=== PATIENT | male | born 1950 | race Caucasian/White ===

== ENCOUNTER 2019-09-22 09:09 | Inpatient (IN) | payer MEDICARE, OTHER ==
[2019-09-22] MEDS ORDERED: Sodium Chloride 0.9% 10 ML Syringe FLUSH PRN (09:15)
[2019-09-22] MEDS ORDERED: Diltiazem 25 MG/5 ML SDV ONE (09:15)
[2019-09-22] MEDS ORDERED: Aspirin 81 MG Tab.Chew PO ONE (09:15)
[2019-09-22] MEDS ORDERED: Sodium Chloride 0.9% 2.5 ML Syringe FLUSH PRN ×2 (09:15)
[2019-09-22] MEDS ORDERED: Diltiazem 25 MG/5 ML SDV IVPUSH ONE ×3 (09:17→09:29)
--- NOTE | 2019-09-22 09:22 | EDM.PDOC ---
ED HPI GENERAL MEDICAL PROBLEM - General Chief Complaint: Cardiovascular Problem Stated Complaint: HIGH HEARTRATE Time Seen by Provider: 09/22/19 09:15 - History of Present Illness INITIAL COMMENTS - FREE TEXT/NARRATIVE: History of present illness: [Patient presents with A. fib with RVR from the surgery center across the street he was scheduled to have cataract surgery today and they noted his vital signs were abnormal and sent him here. He has no prior history of atrial fibrillation and states he feels okay and does not have any chest pain nor does he experience any shortness of breath or chest palpitations. He denies any prior heart conditions although he does have a history of DVT and of hypertension. No leg pain or leg swelling no fever cough congestion or dyspnea. No chest pain nothing makes this better or worse.] Review of systems: As per history of present illness and below otherwise all systems reviewed and negative. Past medical history: As per history of present illness and as reviewed below otherwise noncontributory. Surgical history: As per history of present illness and as reviewed below otherwise noncontributory. Social history: No reported history of drug or alcohol abuse. Family history: As per history of present illness and as reviewed below otherwise noncontributory. Physical exam: HEENT: Atraumatic, normocephalic, pupils reactive, negative for conjunctival pallor or scleral icterus, mucous membranes moist, throat clear, neck supple, nontender, trachea midline. Lungs: Clear to auscultation, breath sounds equal bilaterally, chest nontender. Heart: S1S2, rate is rapid irregularly irregular consistent with A. fib, negative for clicks, rubs, or JVD. Abdomen: Soft, nondistended, nontender. Negative for masses or hepatosplenomegaly. Negative for costovertebral tenderness. Pelvis: Stable nontender. Genitourinary: Deferred. Rectal: Deferred. Extremities: Atraumatic, negative for cords or calf pain. Neurovascular unremarkable. Neuro: Awake, alert, oriented. Cranial nerves II through XII unremarkable. Cerebellum unremarkable. Motor and sensory unremarkable throughout. Exam nonfocal. Diagnostics: [] Therapeutics: [] Impression: A. fib with RVR [] Plan: [] Studies will be sent x-ray and EKGs will be obtained he will be medicated with Cardizem for rate control admitted to the hospital for further evaluation. Definitive disposition and diagnosis as appropriate pending reevaluation and review of above. - Related Data Allergies Allergy/AdvReac Type Severity Reaction Status Date / Time cefpodoxime [From Vantin] Allergy Anaphylactic Verified 09/22/19 09:23 Shock Home Meds: Home Meds Apixaban [Eliquis] 5 mg PO BID 09/22/19 [History] Omeprazole 40 mg PO ACBREAKFAST 09/22/19 [History] Pravastatin [Pravachol] 80 mg PO BEDTIME 09/22/19 [History] amLODIPine [Norvasc] 10 mg PO DAILY 09/22/19 [History] lisinopriL [Lisinopril] 40 mg PO QAM 09/22/19 [History] ED ROS GENERAL - Review of Systems Review Of Systems: See Below ED EXAM, GENERAL - Physical Exam Exam: See Below EKG INTERPRETATION EKG Interpretation Comments: EKG is a atrial fibrillation with a rapid ventricular response of 160 bpm read and interpreted by me Course - Vital Signs Text/Narrative:: One-view portable chest read interpreted by me shows cardiomegaly no other acute cardiopulmonary pathology is evident Was reevaluated Cardizem was required and to 10 mg boluses and a drip at 10 mg/ h to control his rate in the 90s. Patient is asymptomatic at this time and feels fine no chest pain or dyspnea. Critical Care 38 minutes for control of A. fib with RVR this included initial assessment interpretation of EKGs interpretation of rhythm strips initiation of antidysrhythmic's and rate control agents interpretation of lab studies discussion with consultants discussion with patient family does not include separately billable procedures I discussed the case with Dr. Boston at 10:45 AM he will admit the patient Last Recorded V/S: Last Vital Signs Temp 36.3 C 09/22/19 09:10 Pulse 90 09/22/19 10:26 Resp 16 09/22/19 10:26 BP 149/91 H 09/22/19 10:26 Pulse Ox 96 09/22/19 10:26 - Orders/Labs/Meds Orders: Active Orders 24 hr Category Date Time Status Cardiac Monitoring [RC] . DIRECTED Care 09/22/19 09:15 Active EKG Documentation Completion [RC] STAT Care 09/22/19 09:16 Active Pulse Oximetry [RC] ASDIRECTED Care 09/22/19 09:15 Active Diltiazem [Cardizem] 100 mg Med 09/22/19 09:30 Active Sodium Chloride 0.9% [Normal Saline] 100 ml IV NOW Sodium Chloride 0.9% [Saline Flush] Med 09/22/19 09:15 Active 10 ml FLUSH ASDIRECTED PRN Sodium Chloride 0.9% [Saline Flush] Med 09/22/19 09:15 Active 2.5 ml FLUSH ASDIRECTED PRN Sodium Chloride 0.9% [Saline Flush] Med 09/22/19 09:15 Active 2.5 ml FLUSH ASDIRECTED PRN Saline Lock Insert [OM.PC] Stat Oth 09/22/19 09:15 Ordered Medication Orders Diltiazem HCl 100 mg/ Sodium (Chloride) 100 mls @ 10 mls/hr IV NOW [facility]; Protocol Last Admin: 09/22/19 09:32 Dose: 10 mg/hr, 10 mls/hr Sodium Chloride (Saline Flush) 2.5 ml FLUSH ASDIRECTED PRN PRN Reason: Keep Vein Open Last Admin: 09/22/19 09:20 Dose: 2.5 ml Sodium Chloride (Saline Flush) 10 ml FLUSH ASDIRECTED PRN PRN Reason: Keep Vein Open Last Admin: 09/22/19 09:21 Dose: 10 ml Sodium Chloride (Saline Flush) 2.5 ml FLUSH ASDIRECTED PRN PRN Reason: Keep Vein Open Last Admin: 09/22/19 09:20 Dose: 2.5 ml Labs: Laboratory Tests 09/22/19 09/22/19 09/22/19 Range/Units 09:20 09:20 09:20 WBC 5.72 (4.0-11.0) K/uL RBC 4.53 (4.50-5.90) M/uL Hgb 14.9 (13.0-17.0) g/dL Hct 45.9 (38.0-50.0) % MCV 101.3 H (80.0-98.0) fL MCH 32.9 H (27.0-32.0) pg MCHC 32.5 (31.0-37.0) g/dL RDW Std Deviation 51.1 (28.0-62.0) fl RDW Coeff of Veronica 14 (11.0-15.0) % Plt Count 217 (150-400) K/uL MPV 11.00 (7.40-12.00) fL Neut % (Auto) 63.8 (48.0-80.0) % Lymph % (Auto) 21.2 (16.0-40.0) % [place] % (Auto) 11.9 (0.0-15.0) % Eos % (Auto) 2.8 (0.0-7.0) % Baso % (Auto) 0.3 (0.0-1.5) % Neut # (Auto) 3.7 (1.4-5.7) K/uL Lymph # (Auto) 1.2 (0.6-2.4) K/uL [place] # (Auto) 0.7 (0.0-0.8) K/uL Eos # (Auto) 0.2 (0.0-0.7) K/uL Baso # (Auto) 0.0 (0.0-0.1) K/uL Nucleated RBC % 0.0 /100WBC Nucleated RBCs # 0 K/uL INR 1.16 Sodium 139 (136-148) mmol/L Potassium 4.2 (3.5-5.1) mmol/L Chloride 102 (98-107) mmol/L Carbon Dioxide 26.4 (21.0-32.0) mmol/L BUN 20 H (7.0-18.0) mg/dL Creatinine 1.4 H (0.8-1.3) mg/dL Est Cr Clr Drug Dosing 56.28 mL/min Estimated GFR (MDRD) 50.2 ml/min Glucose 111 H (74-106) mg/dL Calcium 9.0 (8.5-10.1) mg/dL Total Bilirubin 0.7 (0.2-1.0) mg/dL AST 35 (15-37) IU/L ALT 40 (14-63) IU/L Alkaline Phosphatase 63 (46-116) U/L Troponin I < 0.050 (0.000-0.056) ng/mL B-Natriuretic Peptide (<100) PG/ML Total Protein 8.5 H (6.4-8.2) g/dL Albumin 3.9 (3.4-5.0) g/dL Globulin 4.6 H (2.6-4.0) g/dL Albumin/Globulin Ratio 0.9 (0.9-1.6) TSH 3rd Generation 2.21 (0.36-3.74) uIU/mL 09/22/19 Range/Units 09:20 WBC (4.0-11.0) K/uL RBC (4.50-5.90) M/uL Hgb (13.0-17.0) g/dL Hct (38.0-50.0) % MCV (80.0-98.0) fL MCH (27.0-32.0) pg MCHC (31.0-37.0) g/dL RDW Std Deviation (28.0-62.0) fl RDW Coeff of Veronica (11.0-15.0) % Plt Count (150-400) K/uL MPV (7.40-12.00) fL Neut % (Auto) (48.0-80.0) % Lymph % (Auto) (16.0-40.0) % [place] % (Auto) (0.0-15.0) % Eos % (Auto) (0.0-7.0) % Baso % (Auto) (0.0-1.5) % Neut # (Auto) (1.4-5.7) K/uL Lymph # (Auto) (0.6-2.4) K/uL [place] # (Auto) (0.0-0.8) K/uL Eos # (Auto) (0.0-0.7) K/uL Baso # (Auto) (0.0-0.1) K/uL Nucleated RBC % /100WBC Nucleated RBCs # K/uL INR Sodium (136-148) mmol/L Potassium (3.5-5.1) mmol/L Chloride (98-107) mmol/L Carbon Dioxide (21.0-32.0) mmol/L BUN (7.0-18.0) mg/dL Creatinine (0.8-1.3) mg/dL Est Cr Clr Drug Dosing mL/min Estimated GFR (MDRD) ml/min Glucose (74-106) mg/dL Calcium (8.5-10.1) mg/dL Total Bilirubin (0.2-1.0) mg/dL AST (15-37) IU/L ALT (14-63) IU/L Alkaline Phosphatase (46-116) U/L Troponin I (0.000-0.056) ng/mL B-Natriuretic Peptide 214 H (<100) PG/ML Total Protein (6.4-8.2) g/dL Albumin (3.4-5.0) g/dL Globulin (2.6-4.0) g/dL Albumin/Globulin Ratio (0.9-1.6) TSH 3rd Generation (0.36-3.74) uIU/mL Meds: Medications Generic Name Dose Route Start Last Admin Trade Name Rocaelq PRN Reason Stop Dose Admin Diltiazem HCl 100 mg/ Sodium 100 mls @ 10 mls/hr 09/22/19 09:30 09/22/19 09: 32 Chloride IV 10 mg/hr NOW [facility] 10 mls/hr Administration Protocol 10 MG/HR Sodium Chloride 2.5 ml 09/22/19 09:15 09/22/19 09:20 Saline Flush FLUSH 2.5 ml ASDIRECTED PRN Administration Keep Vein Open Sodium Chloride 10 ml 09/22/19 09:15 09/22/19 09:21 Saline Flush FLUSH 10 ml ASDIRECTED PRN Administration Keep Vein Open Sodium Chloride 2.5 ml 09/22/19 09:15 09/22/19 09:20 Saline Flush FLUSH 2.5 ml ASDIRECTED PRN Administration Keep Vein Open Discontinued Medications Generic Name Dose Route Start Last Admin Trade Name Cecilio PRN Reason Stop Dose Admin Aspirin 324 mg 09/22/19 09:15 09/22/19 09:22 Aspirin PO 09/22/19 09:16 324 mg ONETIME ONE Administration Diltiazem HCl Confirm 09/22/19 09:15 09/22/19 09:20 Diltiazem Administered 09/22/19 09:16 Not Given Dose 25 mg .ROUTE .STK-MED ONE Diltiazem HCl 10 mg 09/22/19 09:18 09/22/19 09:19 Diltiazem IVPUSH 09/22/19 09:19 10 mg ONETIME ONE Administration Diltiazem HCl 10 mg 09/22/19 09:17 09/22/19 09:20 Diltiazem IVPUSH 09/22/19 09:18 Not Given ONETIME ONE Diltiazem HCl 10 mg 09/22/19 09:29 09/22/19 09:32 Diltiazem IVPUSH 09/22/19 09:30 10 mg ONETIME ONE Administration Diltiazem HCl 125 mg/ Sodium 125 mls @ 10 mls/hr 09/22/19 09:30 Chloride IV NOW [facility] Protocol 10 MG/HR Departure - Departure Time of Disposition: 10:46 Disposition: Admitted As Inpatient 65 Condition: Fair Clinical Impression: Atrial fibrillation with rapid ventricular response Instructions: Atrial Fibrillation Referrals: Huey Neal MD [Primary Care Provider] - Forms: ED Department Discharge Sepsis Event Note - Focused Exam Vital Signs: Vital Signs Temp Pulse Resp BP Pulse Ox 09/22/19 10:26 90 16 149/91 H 96 09/22/19 10:11 83 16 146/92 H 95 09/22/19 09:56 94 17 139/89 96 09/22/19 09:41 89 17 144/87 H 97 09/22/19 09:26 115 H 16 141/90 H 97 09/22/19 09:10 36.3 C 185 H 18 149/106 H 97 Date Exam was Performed: 09/22/19 Time Exam was Performed: 10:45 - My Orders Last 24 Hours: My Active Orders 09/22/19 09:15 Cardiac Monitoring [RC] . DIRECTED Pulse Oximetry [RC] ASDIRECTED Sodium Chloride 0.9% [Saline Flush] 10 ml FLUSH ASDIRECTED PRN Sodium Chloride 0.9% [Saline Flush] 2.5 ml FLUSH ASDIRECTED PRN Sodium Chloride 0.9% [Saline Flush] 2.5 ml FLUSH ASDIRECTED PRN Saline Lock Insert [OM.PC] Stat 09/22/19 09:16 EKG Documentation Completion [RC] STAT 09/22/19 09:30 Diltiazem [Cardizem] 100 mg Sodium Chloride 0.9% [Normal Saline] 100 ml IV NOW - Assessment/Plan Last 24 Hours: My Active Orders 09/22/19 09:15 Cardiac Monitoring [RC] . DIRECTED Pulse Oximetry [RC] ASDIRECTED Sodium Chloride 0.9% [Saline Flush] 10 ml FLUSH ASDIRECTED PRN Sodium Chloride 0.9% [Saline Flush] 2.5 ml FLUSH ASDIRECTED PRN Sodium Chloride 0.9% [Saline Flush] 2.5 ml FLUSH ASDIRECTED PRN Saline Lock Insert [OM.PC] Stat 09/22/19 09:16 EKG Documentation Completion [RC] STAT 09/22/19 09:30 Diltiazem [Cardizem] 100 mg Sodium Chloride 0.9% [Normal Saline] 100 ml IV NOW
[2019-09-22] MEDS ORDERED: Diltiazem 100 MG in Sodium Chloride 0.9% 100 ML IV SCH ×2 (09:30→14:00)
[2019-09-22] MEDS ORDERED: Diltiazem 125 MG in Sodium Chloride 0.9% 100 ML IV SCH (09:30)
--- NOTE | 2019-09-22 09:37 | CR ---
Chest: Portable view of the chest was obtained. Comparison: No prior chest imaging is available. Heart size and mediastinum are within normal limits for portable technique. Lungs are clear with no acute parenchymal change. Bony structures are grossly intact. Impression: 1. Nothing acute is appreciated on portable chest x-ray. Diagnostic code #1 This report was dictated in MDT
[2019-09-22 10:00] LABS: BLOOD UREA NITROGEN,BUN 20 mg/dL (7.0-18.0); CARBON DIOXIDE,CO2 26.4 mmol/L (21.0-32.0); CHLORIDE,CL 102 mmol/L (98-107); GLUCOSE RANDOM 111 mg/dL (74-106); POTASSIUM,K 4.2 mmol/L (3.5-5.1); SODIUM,NA 139 mmol/L (136-148)
[2019-09-22] MEDS ORDERED: Docusate Sodium 100 MG Cap PO PRN (11:22)
[2019-09-22] MEDS ORDERED: Acetaminophen 325 MG Tab PO PRN (11:22)
[2019-09-22] MEDS ORDERED: Ondansetron 4 MG/2 ML SDV IVPUSH PRN (11:22)
--- NOTE | 2019-09-22 11:33 | PCM.HP.2 ---
H&P History of Present Illness - General Date of Service: 09/22/19 Admit Problem/Dx: Admission Diagnosis/Problem Admission Diagnosis/Problem Atrial fibrillation with rapid ventricular response Source of Information: Patient, Old Records ([place] clinic records) History Limitations: Reports: No Limitations - History of Present Illness Initial Comments - Free Text/Narative: This 68 year old male with pmh of HTN, PE/DVT on Eliquis, prediabetes and dyslipidemia presented to the ED today after he was sent over from an outside day surgery with HR of 170s. He was being admitted for cataract surgery when the nursing staff noted HR wa elevated. He was sent to ED for evaluation. He denies symptoms, no chest pain, SOB, dizziness or lightheadedness. He reports he has been feeling fine, with no complaints. Reports some new bilateral lower leg swelling recently which is new. He denies fever, chills, URI symptoms. No abdominal pain, constipation or diarrhea. No black or bloody stools. No urinary concerns. No focal neurological deficits. He reports he has been NPO since midnight and reports he worked heavily yesterday without drinking much water throughout the day. He denies tobacco use, quit 1 year ago after PE diagnosis. No recreational drug use and rare social alcohol use. He reports his mother also has Afib as well. No hx CAD, AZ or CVA in the past. In the ED CBC WNL. BUN 20, Cr 1.4. Glucose 111, Troponin negative. BNP 214, TSH 2.21. CXR shows mild cardiomegaly no infiltrates or pleural effusions. EKG obtained in ED shows afib HR 160s, no signs of ischemia. He was given Diltiazem 10 mg IV and started on Diltiazem drip. HR improved slightly, given another 10 mg bolus and HR has remained controlled 90-110s. Remains asymptomatic. He will be admitted inpatient to ICU for afib RVR. - Related Data Allergies/Adverse Reactions: Allergies Allergy/AdvReac Type Severity Reaction Status Date / Time cefpodoxime [From Vantin] Allergy Anaphylactic Verified 09/22/19 09:23 Shock Home Medications: Home Meds Apixaban [Eliquis] 5 mg PO BID 09/22/19 [History] Omeprazole 40 mg PO ACBREAKFAST 09/22/19 [History] Pravastatin [Pravachol] 80 mg PO BEDTIME 09/22/19 [History] amLODIPine [Norvasc] 10 mg PO DAILY 09/22/19 [History] lisinopriL [Lisinopril] 40 mg PO QAM 09/22/19 [History] Past Medical History Cardiovascular History: Reports: Blood Clots/VTE/DVT, High Cholesterol, Hypertension. Denies: Afib, CAD, [place] Respiratory History: Reports: PE. Denies: Asthma, COPD Gastrointestinal History: Reports: None Genitourinary History: Reports: None. Denies: Acute Renal Failure, Chronic Renal Insuffiency Neurological History: Reports: None. Denies: CVA, TIA Endocrine/Metabolic History: Reports: Diabetes, Type II (prediabetic), Obesity/ BMI 30+. Denies: Hypothyroidism - Infectious Disease History Infectious Disease History: Reports: Mumps - Past Surgical History HEENT Surgical History: Reports: Tonsillectomy GI Surgical History: Reports: Appendectomy Musculoskeletal Surgical History: Reports: Other (See Below) (ankle fixation) Social & Family History - Family History Family Medical History: Noncontributory - Tobacco Use Smoking Status *Q: Former Smoker Tobacco Use Within Last Twelve Months: Cigarettes Used Tobacco, but Quit: Yes Month/Year Tobacco Last Used: 2019 - Caffeine Use Caffeine Use: Reports: Coffee - Alcohol Use Alcohol Use Frequency: Rarely, Socially - Recreational Drug Use Recreational Drug Use: No - Living Situation & Occupation Occupation: Employed H&P Review of Systems - Review of Systems: Review Of Systems: See Below General: Reports: No Symptoms. Denies: Fever, Chills, Malaise, Weakness HEENT: Reports: No Symptoms. Denies: Headaches, Sinus Congestion, Vertigo Pulmonary: Reports: No Symptoms. Denies: Shortness of Breath, Cough, Sputum Cardiovascular: Reports: Edema (BLE). Denies: Chest Pain, Palpitations, Lightheadedness Gastrointestinal: Reports: No Symptoms. Denies: Abdominal Pain, Black Stool, Bloody Stool, Nausea, Vomiting Genitourinary: Reports: No Symptoms. Denies: Dysuria, Frequency Musculoskeletal: Reports: No Symptoms Skin: Reports: No Symptoms Psychiatric: Reports: No Symptoms Neurological: Reports: No Symptoms Hematologic/Lymphatic: Reports: No Symptoms Immunologic: Reports: No Symptoms Exam - Exam Exam: See Below - Vital Signs Vital Signs: Last Vital Signs Temp 97.4 F 09/22/19 09:10 Pulse 90 09/22/19 11:19 Resp 16 09/22/19 11:19 BP 142/91 H 09/22/19 11:19 Pulse Ox 98 09/22/19 11:19 Weight: 106.594 kg - Exam General: Alert, Oriented, Cooperative HEENT: Conjunctiva Clear, Mucosa Moist & [place], Pupils Equal Lungs: Clear to Auscultation, Normal Respiratory Effort Cardiovascular: Regular Rate, Normal S1, Normal S2, Irregular Rhythm. No: Systolic Murmur GI/Abdominal Exam: Normal Bowel Sounds, Soft, Non-Tender Extremities: Normal Inspection, Normal Range of Motion, Normal Capillary Refill , Pedal Edema (+1 pitting edema) Neuro Extensive - Mental Status: Alert, Oriented x3, Normal Mood/Affect Neuro Extensive - Motor, Sensory, Reflexes: CN II-XII Intact, Normal Gait Psychiatric: Alert, Normal Affect, Normal Mood - Patient Data Lab Results Last 24 hrs: Laboratory Results - last 24 hr 09/22/19 09/22/19 09/22/19 Range/Units 09:20 09:20 09:20 WBC 5.72 (4.0-11.0) K/uL RBC 4.53 (4.50-5.90) M/uL Hgb 14.9 (13.0-17.0) g/dL Hct 45.9 (38.0-50.0) % MCV 101.3 H (80.0-98.0) fL MCH 32.9 H (27.0-32.0) pg MCHC 32.5 (31.0-37.0) g/dL RDW Std Deviation 51.1 (28.0-62.0) fl RDW Coeff of Veronica 14 (11.0-15.0) % Plt Count 217 (150-400) K/uL MPV 11.00 (7.40-12.00) fL Neut % (Auto) 63.8 (48.0-80.0) % Lymph % (Auto) 21.2 (16.0-40.0) % Clinch % (Auto) 11.9 (0.0-15.0) % Eos % (Auto) 2.8 (0.0-7.0) % Baso % (Auto) 0.3 (0.0-1.5) % Neut # (Auto) 3.7 (1.4-5.7) K/uL Lymph # (Auto) 1.2 (0.6-2.4) K/uL Clinch # (Auto) 0.7 (0.0-0.8) K/uL Eos # (Auto) 0.2 (0.0-0.7) K/uL Baso # (Auto) 0.0 (0.0-0.1) K/uL Nucleated RBC % 0.0 /100WBC Nucleated RBCs # 0 K/uL INR 1.16 Sodium 139 (136-148) mmol/L Potassium 4.2 (3.5-5.1) mmol/L Chloride 102 (98-107) mmol/L Carbon Dioxide 26.4 (21.0-32.0) mmol/L BUN 20 H (7.0-18.0) mg/dL Creatinine 1.4 H (0.8-1.3) mg/dL Est Cr Clr Drug Dosing 56.28 mL/min Estimated GFR (MDRD) 50.2 ml/min Glucose 111 H (74-106) mg/dL Calcium 9.0 (8.5-10.1) mg/dL Total Bilirubin 0.7 (0.2-1.0) mg/dL AST 35 (15-37) IU/L ALT 40 (14-63) IU/L Alkaline Phosphatase 63 (46-116) U/L Troponin I < 0.050 (0.000-0.056) ng/mL B-Natriuretic Peptide (<100) PG/ML Total Protein 8.5 H (6.4-8.2) g/dL Albumin 3.9 (3.4-5.0) g/dL Globulin 4.6 H (2.6-4.0) g/dL Albumin/Globulin Ratio 0.9 (0.9-1.6) TSH 3rd Generation 2.21 (0.36-3.74) uIU/mL 09/22/19 Range/Units 09:20 WBC (4.0-11.0) K/uL RBC (4.50-5.90) M/uL Hgb (13.0-17.0) g/dL Hct (38.0-50.0) % MCV (80.0-98.0) fL MCH (27.0-32.0) pg MCHC (31.0-37.0) g/dL RDW Std Deviation (28.0-62.0) fl RDW Coeff of Veronica (11.0-15.0) % Plt Count (150-400) K/uL MPV (7.40-12.00) fL Neut % (Auto) (48.0-80.0) % Lymph % (Auto) (16.0-40.0) % Clinch % (Auto) (0.0-15.0) % Eos % (Auto) (0.0-7.0) % Baso % (Auto) (0.0-1.5) % Neut # (Auto) (1.4-5.7) K/uL Lymph # (Auto) (0.6-2.4) K/uL Clinch # (Auto) (0.0-0.8) K/uL Eos # (Auto) (0.0-0.7) K/uL Baso # (Auto) (0.0-0.1) K/uL Nucleated RBC % /100WBC Nucleated RBCs # K/uL INR Sodium (136-148) mmol/L Potassium (3.5-5.1) mmol/L Chloride (98-107) mmol/L Carbon Dioxide (21.0-32.0) mmol/L BUN (7.0-18.0) mg/dL Creatinine (0.8-1.3) mg/dL Est Cr Clr Drug Dosing mL/min Estimated GFR (MDRD) ml/min Glucose (74-106) mg/dL Calcium (8.5-10.1) mg/dL Total Bilirubin (0.2-1.0) mg/dL AST (15-37) IU/L ALT (14-63) IU/L Alkaline Phosphatase (46-116) U/L Troponin I (0.000-0.056) ng/mL B-Natriuretic Peptide 214 H (<100) PG/ML Total Protein (6.4-8.2) g/dL Albumin (3.4-5.0) g/dL Globulin (2.6-4.0) g/dL Albumin/Globulin Ratio (0.9-1.6) TSH 3rd Generation (0.36-3.74) uIU/mL Result Diagrams: 09/22/19 09:20 09/22/19 09:20 EKG INTERPRETATION EKG Date: 09/22/19 Rhythm: A-Fib Rate (Beats/Min): 167 Sepsis Event Note - Evaluation Sepsis Screening Result: No Definite Risk - Focused Exam Vital Signs: Vital Signs Temp Pulse Resp BP Pulse Ox 09/22/19 11:19 90 16 142/91 H 98 09/22/19 10:56 83 16 131/79 97 09/22/19 10:26 90 16 149/91 H 96 09/22/19 10:11 83 16 146/92 H 95 09/22/19 09:56 94 17 139/89 96 09/22/19 09:41 89 17 144/87 H 97 09/22/19 09:26 115 H 16 141/90 H 97 09/22/19 09:10 97.4 F 185 H 18 149/106 H 97 Date Exam was Performed: 09/22/19 Time Exam was Performed: 12:34 - Problem List (1) Atrial fibrillation with rapid ventricular response SNOMED Code(s): 811546990076837 ICD Code: I48.91 - UNSPECIFIED ATRIAL FIBRILLATION Status: Acute Current Visit: Yes (2) HTN (hypertension) SNOMED Code(s): 38897522 ICD Code: I10 - ESSENTIAL (PRIMARY) HYPERTENSION Status: Chronic Current Visit: Yes (3) Anticoagulation adequate SNOMED Code(s): 753674436, 197339603 ICD Code: Z79.01 - BAGGER MEAT (CURRENT) USE OF ANTICOAGULANTS Status: Chronic Current Visit: Yes (4) Hx pulmonary embolism SNOMED Code(s): 655787773 ICD Code: Z86.711 - PERSONAL HISTORY OF PULMONARY EMBOLISM Status: Chronic Current Visit: Yes (5) Pre-diabetes SNOMED Code(s): 723288608 ICD Code: R73.03 - PREDIABETES Status: Chronic Current Visit: Yes (6) Obesity SNOMED Code(s): 878579852, 256780201 ICD Code: E66.9 - OBESITY, UNSPECIFIED Status: Chronic Current Visit: Yes (7) History of tobacco use SNOMED Code(s): 147099742 ICD Code: Z87.891 - PERSONAL HISTORY OF NICOTINE DEPENDENCE Status: Chronic Current Visit: Yes (8) Dyslipidemia SNOMED Code(s): 033810683 ICD Code: E78.5 - HYPERLIPIDEMIA, UNSPECIFIED Status: Chronic Current Visit: Yes (9) Hx of deep venous thrombosis SNOMED Code(s): 877433338 ICD Code: Z86.718 - PERSONAL HISTORY OF OTHER VENOUS THROMBOSIS AND EMBOLISM Status: Chronic Current Visit: Yes (10) History of Beard's esophagus SNOMED Code(s): 13224391347677253 ICD Code: Z87.19 - PERSONAL HISTORY OF OTHER DISEASES OF THE DIGESTIVE SYSTEM Status: Chronic Current Visit: Yes Problem List Initiated/Reviewed/Updated: Yes Orders Last 24hrs: Active Orders 24 hr Category Date Time Status Admission Status [Patient Status] [ADT] Stat ADT 09/22/19 10:46 Active Cardiac Monitoring [RC] . DIRECTED Care 09/22/19 09:15 Active Cardiac Monitoring [RC] Q1HR Care 09/22/19 11:24 Ordered EKG Documentation Completion [RC] STAT Care 09/22/19 09:16 Active Height and Weight [RC] DAILY Care 09/22/19 11:22 Ordered Intake and Output [RC] QSHIFT Care 09/22/19 11:23 Ordered Oxygen Therapy [RC] PRN Care 09/22/19 11:23 Ordered Pulse Oximetry [RC] ASDIRECTED Care 09/22/19 09:15 Active Up With Assistance [RC] ASDIRECTED Care 09/22/19 11:22 Ordered VTE/DVT Education [RC] PER UNIT ROUTINE Care 09/22/19 11:23 Ordered Vital Signs [RC] Q1HR Care 09/22/19 11:23 Ordered Heart Healthy Diet [DIET] Diet 09/22/19 Lunch Ordered Echo Comp wo Cont [US] Urgent Exams 09/22/19 11:22 Ordered BASIC METABOLIC PANEL,BMP [CHEM] AM Lab 09/23/19 05:11 Ordered MAGNESIUM [CHEM] AM Lab 09/23/19 05:11 Ordered MAGNESIUM [CHEM] Routine Lab 09/22/19 11:21 Ordered Acetaminophen [Tylenol] Med 09/22/19 11:22 Ordered 650 mg PO Q4H PRN Apixaban [Eliquis] Med 09/22/19 11:30 Ordered 5 mg PO BID Diltiazem IR [Cardizem] Med 09/22/19 12:00 Ordered 30 mg PO Q6HR Diltiazem [Cardizem] 100 mg Med 09/22/19 09:30 Active Sodium Chloride 0.9% [Normal Saline] 100 ml IV NOW Docusate Sodium [Colace] Med 09/22/19 11:22 Ordered 100 mg PO BID PRN Omeprazole [Omeprazole] Med 09/23/19 07:30 Ordered 40 mg PO ACBREAKFAST Ondansetron [Zofran] Med 09/22/19 11:22 Ordered 4 mg IVPUSH Q4H PRN Pravastatin [Pravachol] Med 09/22/19 21:00 Ordered 80 mg PO BEDTIME Sodium Chloride 0.9% [Saline Flush] Med 09/22/19 09:15 Active 10 ml FLUSH ASDIRECTED PRN Sodium Chloride 0.9% [Saline Flush] Med 09/22/19 09:15 Active 2.5 ml FLUSH ASDIRECTED PRN Sodium Chloride 0.9% [Saline Flush] Med 09/22/19 09:15 Active 2.5 ml FLUSH ASDIRECTED PRN Saline Lock Insert [OM.PC] Stat Oth 09/22/19 09:15 Ordered Resuscitation Status Routine Resus Stat 09/22/19 11:22 Ordered Medication Orders Acetaminophen (Tylenol) 650 mg PO Q4H PRN PRN Reason: Pain (Mild 1-3)/fever Apixaban (Eliquis) 5 mg PO BID [place] Diltiazem HCl (Cardizem) 30 mg PO Q6HR [place] Docusate Sodium (Colace) 100 mg PO BID PRN PRN Reason: Constipation Diltiazem HCl 100 mg/ Sodium (Chloride) 100 mls @ 10 mls/hr IV NOW [place]; Protocol Last Admin: 09/22/19 09:32 Dose: 10 mg/hr, 10 mls/hr Non-Formulary Medication (Omeprazole [Omeprazole]) 40 mg PO ACBREAKFAST [place] Ondansetron HCl (Zofran) 4 mg IVPUSH Q4H PRN PRN Reason: Nausea Pravastatin Sodium (Pravachol) 80 mg PO BEDTIME [place] Sodium Chloride (Saline Flush) 2.5 ml FLUSH ASDIRECTED PRN PRN Reason: Keep Vein Open Last Admin: 09/22/19 09:20 Dose: 2.5 ml Sodium Chloride (Saline Flush) 10 ml FLUSH ASDIRECTED PRN PRN Reason: Keep Vein Open Last Admin: 09/22/19 09:21 Dose: 10 ml Sodium Chloride (Saline Flush) 2.5 ml FLUSH ASDIRECTED PRN PRN Reason: Keep Vein Open Last Admin: 09/22/19 09:20 Dose: 2.5 ml Assessment/Plan Comment:: This 68 year old male admitted with Afib RVR 1. Afib RVR: - Monitor Electrolytes, replaced as needed, Keep Magnesium 2.0 and K+ 4.0 - Continue Diltiazem gtt for now, start Diltiazem 30 mg PO Q6hr. Titrate off as possible. - Monitor BP closely - Hold Amlodipine - Continue Eliquis, has recurrent PE/DVT has had workup with Hematology. Dr Mejia (Dr Mcnamara) in [facility] - Obtain ECHO 2. HTN: - Hold Lisinopril for now due to elevated BUN and Cr. - Obtain [place] records for recent lab testing - Hold Amlodipine as starting Diltiazem 3. Dyslipidemia: - Obtain lipid panel and A1c - Continue statin VTE prophylaxis: Eliquis Dispo: 2 days - Mortality Measure Prognosis:: Good
[2019-09-22] MEDS ORDERED: Magnesium Sulfate/Water 2 GM in Premix Bag 1 BAG IV ONE (12:24)
[2019-09-22] MEDS ORDERED: Sodium Chloride 0.9% 500 ML IV SCH (12:45)
--- NOTE | 2019-09-22 12:49 | PN ---
THC Physician - Brief Progress [id number]/26/2020 12:38[facility] Chana Stuart, SUSAN - GREGG (BERYL) - LIAM MARKSDate of Service 09/22/2019 12:38HPI/Bess nts of Note eICU admission [id number] male with past medical history of VTE on anticoagulation, HTN and HLD who presented to the hospital with A. fib with RVR. Patient was seen at a cataract surge ry center where he was noted to be tachycardic and without any symptoms and transferred to [facility]. Samantha ent mentions that he has noticed bilateral lower extremity swelling recently but otherwise denied any other associated symptoms.Patient sitting up in bed, is not in any acute distress conversing on his cell phone and seems comfortable.Vital signs reviewed. HR 92, BP 140/76Labs/imaging/EMR reviewed.A F ib w/ RVR -Unclear etiology at this time, possible related to electrolyte derrangements-Agree with ca rdizem gtt and starting PO given controlled HR-Agree with electrolyte goal of 4 and 2 for K and Mg re spectively-TSH and Trop normal. Can consider doing Utox -Agree with continuing AC with eliquis-Recomm end obtaining 2D echoAKI-Unclear etiology possibly pre-renal -Will monitor, if continued uptrend will need renal imaging-Avoid nephrotoxins. Strict I/OsDVT prophy- on anticoagulationGI prophy- not sheela catedThank you for allowing us to participate in the care of this patient.Interventions Major-Acute r enal failure - evaluation and management, Arrhythmia - evaluation and management, Electrolyte abnorma lity - evaluation and management
[2019-09-22] MEDS: Diltiazem IR 30 MG Tab PO SCH ×3 (12:57→23:30)
[2019-09-22] MEDS: Apixaban 5 MG Tab PO SCH ×2 (12:57→19:59)
[2019-09-22 17:01] LABS: HEMOGLOBIN A1C 6.3 % (4.5-6.2)
[2019-09-22] MEDS ORDERED: Pravastatin 40 MG Tab PO SCH (21:00)
[2019-09-23] MEDS: Diltiazem IR 30 MG Tab PO SCH (06:28)
[2019-09-23 07:03] LABS: BLOOD UREA NITROGEN,BUN 15 mg/dL (7.0-18.0); CARBON DIOXIDE,CO2 25.2 mmol/L (21.0-32.0); CHLORIDE,CL 104 mmol/L (98-107); GLUCOSE RANDOM 104 mg/dL (74-106); SODIUM,NA 139 mmol/L (136-148)
[2019-09-23] MEDS ORDERED: Omeprazole 20 MG Cap.CR PO SCH (07:30)
[2019-09-23] MEDS ORDERED: Magnesium Sulfate/Water 2 GM in Premix Bag 1 BAG IV ONE (07:52)
[2019-09-23] MEDS: Apixaban 5 MG Tab PO SCH (08:19)
--- NOTE | 2019-09-23 08:21 | PN ---
THC Physician - Brief Progress [id number]/27/2020 08:12[facility] Chana Stuart ND - GREGG (BERYL) - LIAM MARKSDate of Service 09/23/2019 08:12HPI/Bess nts of Note eICU progress note:68-year-old male who presented to the hospital with A. fib with RVR. Per EMR review patient does not seem to have had any acute events overnight and remained stable with heart rate in the 70-80 range.Patient sitting up at the side of his bed eating breakfast and seems co mfortable and in no acute distress.Vital signs reviewed. HR 115Labs/EMR reviewed.A Fib w/ RVR-Unclea r etiology at this time-PO cardizem started yesterday; recommend keeping Q6h dose until HR better con trolled so can be titrated up further. -Agree with electrolyte goal of 4 and 2 for K and Mg respectiv ludy (Mg replaced further this morning)-Agree with continuing AC with haylie-2D echo done and pending review by cardiology. Thank you for allowing us to participate in the care of this patient.Intervent ions Major-Arrhythmia - evaluation and management, Electrolyte abnormality - evaluation and managemen t
[2019-09-23] MEDS ORDERED: Diltiazem 120 MG Cap.CD PO SCH (09:00)
--- NOTE | 2019-09-23 10:04 | PCM.DCSUM1 ---
Discharge Summary - Hospital Course Brief History: This 68 year old male with pmh of HTN, PE/DVT on Eliquis, prediabetes and dyslipidemia presented to the ED today after he was sent over from an outside day surgery with HR of 170s. He was being admitted for cataract surgery when the nursing staff noted HR wa elevated. He was sent to ED for evaluation. He denies symptoms, no chest pain, SOB, dizziness or lightheadedness. He reports he has been feeling fine, with no complaints. Reports some new bilateral lower leg swelling recently which is new. He denies fever, chills, URI symptoms. No abdominal pain, constipation or diarrhea. No black or bloody stools. No urinary concerns. No focal neurological deficits. He reports he has been NPO since midnight and reports he worked heavily yesterday without drinking much water throughout the day. He denies tobacco use, quit 1 year ago after PE diagnosis. No recreational drug use and rare social alcohol use. He reports his mother also has Afib as well. No hx CAD, ME or CVA in the past. In the ED CBC WNL. BUN 20, Cr 1.4. Glucose 111, Troponin negative. BNP 214, TSH 2.21. CXR shows mild cardiomegaly no infiltrates or pleural effusions. EKG obtained in ED shows afib HR 160s, no signs of ischemia. He was given Diltiazem 10 mg IV and started on Diltiazem drip. HR improved slightly, given another 10 mg bolus and HR has remained controlled 90-110s. Remains asymptomatic. He will be admitted inpatient to ICU for afib RVR. Diagnosis: Stroke: No - Discharge Data Discharge Date: 09/23/19 Discharge Disposition: Home, Self-Care 01 Condition: Stable - Referral to Home Health Primary Care Physician: Huey Neal MD - Discharge Diagnosis/Problem(s) (1) Atrial fibrillation with rapid ventricular response SNOMED Code(s): 278050640216984 ICD Code: I48.91 - UNSPECIFIED ATRIAL FIBRILLATION Status: Acute Current Visit: Yes (2) HTN (hypertension) SNOMED Code(s): 68658822 ICD Code: I10 - ESSENTIAL (PRIMARY) HYPERTENSION Status: Chronic Current Visit: Yes (3) Anticoagulation adequate SNOMED Code(s): 670552799, 886919422 ICD Code: Z79.01 - RESIDENTIAL (CURRENT) USE OF ANTICOAGULANTS Status: Chronic Current Visit: Yes (4) Hx pulmonary embolism SNOMED Code(s): 420242651 ICD Code: Z86.711 - PERSONAL HISTORY OF PULMONARY EMBOLISM Status: Chronic Current Visit: Yes (5) Pre-diabetes SNOMED Code(s): 794857806 ICD Code: R73.03 - PREDIABETES Status: Chronic Current Visit: Yes (6) Obesity SNOMED Code(s): 093687659, 177310424 ICD Code: E66.9 - OBESITY, UNSPECIFIED Status: Chronic Current Visit: Yes (7) History of tobacco use SNOMED Code(s): 985915749 ICD Code: Z87.891 - PERSONAL HISTORY OF NICOTINE DEPENDENCE Status: Chronic Current Visit: Yes (8) Dyslipidemia SNOMED Code(s): 889787957 ICD Code: E78.5 - HYPERLIPIDEMIA, UNSPECIFIED Status: Chronic Current Visit: Yes (9) Hx of deep venous thrombosis SNOMED Code(s): 050384305 ICD Code: Z86.718 - PERSONAL HISTORY OF OTHER VENOUS THROMBOSIS AND EMBOLISM Status: Chronic Current Visit: Yes (10) History of Beard's esophagus SNOMED Code(s): 97926671668225795 ICD Code: Z87.19 - PERSONAL HISTORY OF OTHER DISEASES OF THE DIGESTIVE SYSTEM Status: Chronic Current Visit: Yes - Patient Summary/Data Hospital Course: Admitting Diagnoses: New onset atrial fibrillation Discharge Diagnoses: New onset Atrial fibrillaton Other pmh: Dyslipidemia Pre-diabetes Guzman was admitted secondary to new onset atrial fibrillation. He was initially started on Diltiazem drip, he was then started on PO Diltiazem and weaned off drip. He has been asymptomatic during this time. Heart rate elevates to 115s with activity, remains asymptomatic. He was started on Diltiazem 120 this morning. He is ranjith eager to go home today. He will be discharged with today with follow up arranged with Cardiology as well as PCP at the [facility]. He was noted to have some desaturation to 88% while sleeping. I would recommend outpatient sleep study to be set up through the [facility] to further evaluate, especially with new onset atrial fibrillation. ECHO is pending on discharge. He is to continue statin and Eliquis. We discussed the importance of being complaint with every dose of Eliquis, he verbalized understanding. He is to HOLD lisinopril for now, as BP is well controlled with Diltiazem. He is to STOP Amlodipine. Swelling to BLE improved slightly. 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 Given 500 ml bolus and had improvement to baseline today. He is to return to ED or clinic if concerns should arise. he was counseled on monitoring BP and HR at home. - Patient Instructions Diet: Heart Healthy Diet, Drink 8-10+ Glasses/Day Activity: No Strenuous Activities, Rest and Relax Today Showering/Bathing: May Shower Notify Provider of: Fever, Increased Pain, Swelling and Redness, Drainage, Nausea and/or Vomiting Other/Special Instructions: Hold Lisinopril for now. Monitor blood pressure every couple days and keep a log to bring [facility]. Stop Amlodipine. Monitor heart rate, count wrist pulse for 60 seconds. If you experience chest pain, shortness of breath or lightheadedness or dizziness. - Discharge Plan *PRESCRIPTION DRUG MONITORING PROGRAM REVIEWED*: Not Applicable *COPY OF PRESCRIPTION DRUG MONITORING REPORT IN PATIENT EDDI: Not Applicable Prescriptions/Med Rec: Diltiazem HCl [Diltiazem 24Hr Cd] 180 mg PO DAILY #30 cap.er.24h Diltiazem HCl [Diltiazem 24Hr Cd] 180 mg PO DAILY #30 cap.er.24h Home Medications: Home Meds Apixaban [Eliquis] 5 mg PO BID 09/22/19 [History] Omeprazole 40 mg PO ACBREAKFAST 09/22/19 [History] Pravastatin [Pravachol] 80 mg PO BEDTIME 09/22/19 [History] Diltiazem HCl [Diltiazem 24Hr Cd] 180 mg PO DAILY #30 cap.er.24h 09/23/19 [Rx] Diltiazem HCl [Diltiazem 24Hr Cd] 180 mg PO DAILY #30 cap.er.24h 09/23/19 [Rx] lisinopriL [Lisinopril] 40 mg PO QAM #0 09/23/19 [Rx] Oxygen Therapy Mode: Room Air Patient Handouts: Atrial Fibrillation Referrals: Huey Neal MD [Primary Care Provider] - Jeremiah Reno NP [Ordering Only Provider] - Abi Cruz MD [Physician] - - Discharge Summary/Plan Comment DC Time >30 min.: No - Patient Data Vitals - Most Recent: Last Vital Signs Temp 98.4 F 09/23/19 04:00 Pulse 115 H 09/23/19 08:19 Resp 14 09/23/19 08:00 BP 127/78 09/23/19 08:19 Pulse Ox 94 L 09/23/19 08:00 Weight - Most Recent: 109.452 kg I&O - Last 24 hours: Intake & Output 09/22/19 09/23/19 09/23/19 22:59 06:59 14:59 Intake Total 1050 500 50 Output Total 225 625 Balance 825 -125 50 Lab Results - Last 24 hrs: Laboratory Results - last 24 hr 09/22/19 09/22/19 09/22/19 Range/Units 09:20 09:20 09:20 Sodium 139 (136-148) mmol/L Potassium 4.2 (3.5-5.1) mmol/L Chloride 102 (98-107) mmol/L Carbon Dioxide 26.4 (21.0-32.0) mmol/L BUN 20 H (7.0-18.0) mg/dL Creatinine 1.4 H (0.8-1.3) mg/dL Est Cr Clr Drug Dosing 56.28 mL/min Estimated GFR (MDRD) 50.2 ml/min Glucose 111 H (74-106) mg/dL Hemoglobin A1c (4.5-6.2) % Calcium 9.0 (8.5-10.1) mg/dL Magnesium 1.2 L (1.8-2.4) mg/dL Total Bilirubin 0.7 (0.2-1.0) mg/dL AST 35 (15-37) IU/L ALT 40 (14-63) IU/L Alkaline Phosphatase 63 (46-116) U/L Troponin I < 0.050 (0.000-0.056) ng/mL B-Natriuretic Peptide 214 H (<100) PG/ML Total Protein 8.5 H (6.4-8.2) g/dL Albumin 3.9 (3.4-5.0) g/dL Globulin 4.6 H (2.6-4.0) g/dL Albumin/Globulin Ratio 0.9 (0.9-1.6) Triglycerides (0-200) mg/dL Cholesterol (50-200) mg/dL LDL Cholesterol, Calc (60-180) mg/dL VLDL Cholesterol (5-55) mg/dL HDL Cholesterol (40-60) mg/dL Cholesterol/HDL Ratio (3.3-6.0) TSH 3rd Generation 2.21 (0.36-3.74) uIU/mL 09/22/19 09/23/19 Range/Units 14:54 06:00 Sodium 139 (136-148) mmol/L Potassium 4.0 (3.5-5.1) mmol/L Chloride 104 (98-107) mmol/L Carbon Dioxide 25.2 (21.0-32.0) mmol/L BUN 15 (7.0-18.0) mg/dL Creatinine 1.2 (0.8-1.3) mg/dL Est Cr Clr Drug Dosing 63.77 mL/min Estimated GFR (MDRD) > 60.0 ml/min Glucose 104 (74-106) mg/dL Hemoglobin A1c 6.3 H (4.5-6.2) % Calcium 8.1 L (8.5-10.1) mg/dL Magnesium 1.6 L (1.8-2.4) mg/dL Total Bilirubin (0.2-1.0) mg/dL AST (15-37) IU/L ALT (14-63) IU/L Alkaline Phosphatase (46-116) U/L Troponin I (0.000-0.056) ng/mL B-Natriuretic Peptide (<100) PG/ML Total Protein (6.4-8.2) g/dL Albumin (3.4-5.0) g/dL Globulin (2.6-4.0) g/dL Albumin/Globulin Ratio (0.9-1.6) Triglycerides 53 (0-200) mg/dL Cholesterol 132 (50-200) mg/dL LDL Cholesterol, Calc 76 (60-180) mg/dL VLDL Cholesterol 10 (5-55) mg/dL HDL Cholesterol 45 (40-60) mg/dL Cholesterol/HDL Ratio 2.9 L (3.3-6.0) TSH 3rd Generation (0.36-3.74) uIU/mL Med Orders - Current: Current Medications Acetaminophen (Tylenol) 650 mg PO Q4H PRN PRN Reason: Pain (Mild 1-3)/fever Apixaban (Eliquis) 5 mg PO BID [facility] Last Admin: 09/23/19 08:19 Dose: 5 mg Diltiazem HCl (Cardizem Cd) 120 mg PO DAILY [facility] Last Admin: 09/23/19 08:19 Dose: 120 mg Docusate Sodium (Colace) 100 mg PO BID PRN PRN Reason: Constipation Omeprazole (Omeprazole) 40 mg PO ACBREAKFAST [facility] Last Admin: 09/23/19 06:29 Dose: 40 mg Ondansetron HCl (Zofran) 4 mg IVPUSH Q4H PRN PRN Reason: Nausea Pravastatin Sodium (Pravachol) 80 mg PO BEDTIME [facility] Last Admin: 09/22/19 19:59 Dose: 80 mg Sodium Chloride (Saline Flush) 2.5 ml FLUSH ASDIRECTED PRN PRN Reason: Keep Vein Open Last Admin: 09/22/19 09:20 Dose: 2.5 ml Sodium Chloride (Saline Flush) 10 ml FLUSH ASDIRECTED PRN PRN Reason: Keep Vein Open Last Admin: 09/22/19 09:21 Dose: 10 ml Sodium Chloride (Saline Flush) 2.5 ml FLUSH ASDIRECTED PRN PRN Reason: Keep Vein Open Last Admin: 09/22/19 09:20 Dose: 2.5 ml Discontinued Medications Aspirin (Aspirin) 324 mg PO ONETIME ONE Stop: 09/22/19 09:16 Last Admin: 09/22/19 09:22 Dose: 324 mg Diltiazem HCl (Diltiazem) Confirm Administered Dose 25 mg .ROUTE .STK-MED ONE Stop: 09/22/19 09:16 Last Admin: 09/22/19 09:20 Dose: Not Given Diltiazem HCl (Diltiazem) 10 mg IVPUSH ONETIME ONE Stop: 09/22/19 09:19 Last Admin: 09/22/19 09:19 Dose: 10 mg Diltiazem HCl (Diltiazem) 10 mg IVPUSH ONETIME ONE Stop: 09/22/19 09:18 Last Admin: 09/22/19 09:20 Dose: Not Given Diltiazem HCl (Diltiazem) 10 mg IVPUSH ONETIME ONE Stop: 09/22/19 09:30 Last Admin: 09/22/19 09:32 Dose: 10 mg Diltiazem HCl (Cardizem) 30 mg PO Q6HR [facility] Last Admin: 09/23/19 06:28 Dose: 30 mg Diltiazem HCl 125 mg/ Sodium (Chloride) 125 mls @ 10 mls/hr IV NOW [facility]; Protocol Diltiazem HCl 100 mg/ Sodium (Chloride) 100 mls @ 10 mls/hr IV NOW [facility]; Protocol Last Titration: 09/22/19 15:00 Dose: 0 mg/hr, 0 mls/hr Magnesium Sulfate 2 gm/ Premix 50 mls @ 50 mls/hr IV ONETIME ONE Stop: 09/22/19 13:23 Last Admin: 09/22/19 12:58 Dose: 50 mls/hr Sodium Chloride (Normal Saline) 500 mls @ 200 mls/hr IV .BOLUS [facility] Last Admin: 09/22/19 14:36 Dose: 200 mls/hr Diltiazem HCl 100 mg/ Sodium (Chloride) 100 mls @ 10 mls/hr IV TITRATE [facility]; Protocol Magnesium Sulfate 2 gm/ Premix 50 mls @ 50 mls/hr IV ONETIME ONE Stop: 09/23/19 08:51 Last Admin: 09/23/19 08:21 Dose: 50 mls/hr - Exam General: Reports: Alert, Oriented, Cooperative, No Acute Distress Lungs: Reports: Clear to Auscultation, Normal Respiratory Effort Cardiovascular: Reports: Regular Rate, Irregular Rhythm GI/Abdominal Exam: Normal Bowel Sounds, Soft, Non-Tender Back Exam: Reports: Normal Inspection, Full Range of Motion Extremities: Normal Inspection, Normal Range of Motion, Non-Tender, Pedal Edema (+1) Neurological: Reports: No New Focal Deficit Psy/Mental Status: Reports: Alert, Normal Affect, Normal Mood
--- NOTE | 2019-09-24 12:34 | ECHO ---
EXAM DATE: 09/22/19 PATIENT'S AGE: 68 The ECHO report can be seen in this patient's EMR (Electronic Medical Record) in the REPORTS section. The report has also been scanned into PACS. REGI
== END 2019-09-23 12:05 | disposition home or self-care (01) | DRG 309 ==
LOC: MW.ED 09:09 → MW.ICU 10:46 → UNDOADMIN 10:56 → MW.ICU 10:56
PROVIDERS: ADMIT Internal Medicine; ATTEND Internal Medicine
DX: I48.91 Unspecified atrial fibrillation (principal); N17.9 Acute kidney failure, unspecified; I10 Essential (primary) hypertension; R73.03 Prediabetes; E66.9 Obesity, unspecified; E78.5 Hyperlipidemia, unspecified; Z79.01 Long term (current) use of anticoagulants; Z86.711 Personal history of pulmonary embolism; Z87.891 Personal history of nicotine dependence; Z86.718 Personal history of other venous thrombosis and embolism; Z87.19 Personal history of other diseases of the digestive system; Z79.899 Other long term (current) drug therapy; Z88.8 Allergy status to other drugs, medicaments and biological substances; Z68.32 Body mass index [BMI] 32.0-32.9, adult
CPT/HCPCS: 36415; 71045; 80053; 83735; 83880; 84443; 84484; 85025; 85610; 93005; A9270; J3490 ×3; J7050; 80048; 80061; 83036; 93306; J3475; J7040

== ENCOUNTER → 2021-11-06 | Day surgery (SDC) | payer OTHER, MEDICARE ==
[~2021-11-06] MED LIST: Ketamine 500 mg/10 ML MDV ONE; Lactated Ringers 1,000 ML IV SCH; Lidocaine 2% 5 ML SDV ONE; Midazolam 1 MG/ML 2 ML SDV ONE; Ondansetron 4 MG/2 ML SDV IVPUSH PRN; Ondansetron 4 MG/2 ML SDV ONE; Propofol 200 MG/20 ML SDV ONE; ePHEDrine 50 MG/ML SDV ONE; fentaNYL 100 MCG/2 ML SDV ONE
== END | disposition home or self-care (01) ==
LOC: MW.SDS 07:23
PROVIDERS: ATTEND Surgery
DX: Z12.11 Encounter for screening for malignant neoplasm of colon (principal); K29.50 Unspecified chronic gastritis without bleeding; K31.7 Polyp of stomach and duodenum; K20.90 Esophagitis, unspecified without bleeding; K22.70 Barrett's esophagus without dysplasia; D12.4 Benign neoplasm of descending colon; K44.9 Diaphragmatic hernia without obstruction or gangrene; I10 Essential (primary) hypertension; E78.00 Pure hypercholesterolemia, unspecified; I48.91 Unspecified atrial fibrillation; K21.9 Gastro-esophageal reflux disease without esophagitis; E66.9 Obesity, unspecified; Z68.30 Body mass index [BMI] 30.0-30.9, adult; Z87.891 Personal history of nicotine dependence; Z86.718 Personal history of other venous thrombosis and embolism; Z86.711 Personal history of pulmonary embolism; Z88.1 Allergy status to other antibiotic agents; Z87.19 Personal history of other diseases of the digestive system; Z87.81 Personal history of (healed) traumatic fracture; Z90.49 Acquired absence of other specified parts of digestive tract; Z98.890 Other specified postprocedural states; Z79.01 Long term (current) use of anticoagulants
CPT/HCPCS: 43239; 45380; J2250; J2704; J3010; J3490; J7120; 00813; 99100; J2405